=== PATIENT | female | born 1945 | race Caucasian/White ===

== ENCOUNTER 2018-11-14 19:41 | Emergency (ER) | payer OTHER ==
[~2018-11-14] VITALS: Ht 157.5 cm; Wt 61.2 kg
[2018-11-14 20:04] VITALS: BP 104/42
--- NOTE | 2018-11-14 20:07 | NUR ---
PT TO ER LOBBY VIA W/C IN STABLE CONDITION.
--- NOTE | 2018-11-14 20:20 | NUR ---
Po beck in EDM - 11/14/18 at 2231 by AMILCARBrigida Patient discharged with v/s stable. Written and verbal after care instructions given and explained. Patient verbalized understanding. Ambulatory with steady gait. All questions addressed prior to discharge. Advised to follow up with PMD.
[2018-11-14 21:03] VITALS: BP 104/42
--- NOTE | 2018-11-14 21:03 | NUR ---
PT PRESENTS TO ED WITH RIGHT ANKLE PAIN. PT STATES WALKING AND TRIPPED AT HOME TWISTING RIGHT ANKLE. EDEMA PRESENT. CMS INTACT BILAT LOWER EXTREMITIES. 8/10 PAIN. WHEEL CHAIRED INTO ED D/T PAIN. PT STATES SHE NORMALLY WALKS. VSS. POSITIONED IN BED FOR COMORT. RIGHT ANKLE ELEVATED. ER MD AWARE. ACCOMPANIED BY FAMILY. CONTINUE TO MONITOR.
--- NOTE | 2018-11-14 21:03 | NUR ---
PT TAKEN TO BED 8
--- NOTE | 2018-11-14 21:53 | NUR ---
Dr. Salgado evaluating patient at bedside.
--- NOTE | 2018-11-14 22:01 | NUR ---
wrapped PT's right ankle with an lori wrap.
[2018-11-14] MEDS ORDERED: HYDROcodone/APAP 5/325 MG 1 TAB TAB PO ONE (22:15)
--- NOTE | 2018-11-14 22:20 | NUR ---
Patient discharged with v/s stable. Written and verbal after care instructions given and explained. Patient verbalized understanding. Ambulatory with steady gait. All questions addressed prior to discharge. Advised to follow up with PMD.
== END 2018-11-14 22:20 | disposition home or self-care (01) ==
LOC: MED 19:41
DX: M25.571 Pain in right ankle and joints of right foot (principal); I10 Essential (primary) hypertension; W05.0XXA Fall from non-moving wheelchair, initial encounter; Y93.89 Activity, other specified; Y92.89 Other specified places as the place of occurrence of the external cause; Y99.8 Other external cause status
CPT/HCPCS: 73610; 99283